=== PATIENT | female | born 2000 | race Two or more races ===

== ENCOUNTER 2020-05-10 01:20 | Emergency (ER) | payer OTHER ==
[~2020-05-10] VITALS: Ht 154.9 cm; Wt 57.6 kg
[2020-05-10] MEDS ORDERED: PRENA1 CHEW TA1.4 MG (01:31)
[2020-05-10] MEDS ORDERED: ANALPRAM HC 2.530 GM RECTAL (02:54)
== END 2020-05-10 03:22 | disposition home or self-care (01) ==
LOC: ER 01:20
DX: K64.8 Other hemorrhoids (principal)

== ENCOUNTER 2020-05-18 19:22 | Outpatient (CLI) | payer OTHER ==
[~2020-05-18 19:22] MED LIST: ANALPRAM HC 2.530 GM RECTAL; PRENA1 CHEW TA1.4 MG
== END 2020-05-19 10:34 | disposition home or self-care (01) ==
LOC: OBS/DEL 19:22
PROVIDERS: ATTEND Obstetrics & Gynecology
DX: O26.892 Other specified pregnancy related conditions, second trimester (principal); R10.12 Left upper quadrant pain

== ENCOUNTER → 2020-07-20 | Outpatient (CLI) | payer OTHER | END | disposition home or self-care (01) | LOC: NST 18:08 | PROVIDERS: ATTEND Obstetrics & Gynecology | DX: Z34.83 Encounter for supervision of other normal pregnancy, third trimester (principal) ==

== ENCOUNTER 2020-07-24 12:00 | Outpatient (CLI) | payer OTHER | END 2020-07-24 13:27 | disposition home or self-care (01) | LOC: NST 12:00 | PROVIDERS: ATTEND Obstetrics & Gynecology | DX: Z34.83 Encounter for supervision of other normal pregnancy, third trimester (principal) ==

== ENCOUNTER 2020-07-29 20:37 | Outpatient (CLI) | payer OTHER | END 2020-07-30 15:28 | disposition home or self-care (01) | LOC: OBS/DEL 20:37 | PROVIDERS: ATTEND Obstetrics & Gynecology | DX: O36.8130 Decreased fetal movements, third trimester, not applicable or unspecified (principal); Z3A.35 35 weeks gestation of pregnancy ==

== ENCOUNTER 2020-08-11 15:48 | Inpatient (IN) | payer OTHER ==
[~2020-08-11] VITALS: Ht 154.9 cm; Wt 1.8 kg
== END 2020-08-14 14:48 | disposition home or self-care (01) | DRG 788 ==
LOC: LDR 15:48 → OB/GYN 15:48 → O/R 20:55 → OB/GYN 21:39
PROVIDERS: ADMIT Obstetrics & Gynecology; ATTEND Obstetrics & Gynecology
PROC: 4A1HXFZ Monitoring of Products of Conception, Cardiac Rhythm, External Approach (ICD-10-PCS; 2020-08-11)
PROC: 10D00Z1 Extraction of Products of Conception, Low, Open Approach (ICD-10-PCS; principal; 2020-08-11 18:00)
DX: O36.8330 Maternal care for abnormalities of the fetal heart rate or rhythm, third trimester, not applicable or unspecified (principal); O36.5930 Maternal care for other known or suspected poor fetal growth, third trimester, not applicable or unspecified; Z3A.36 36 weeks gestation of pregnancy; Z37.0 Single live birth; Z20.822 Contact with and (suspected) exposure to COVID-19

== ENCOUNTER 2023-06-01 17:57 | Emergency (ER) | payer OTHER ==
[~2023-06-01] VITALS: Ht 154.9 cm; Wt 68.0 kg
== END 2023-06-01 21:03 | disposition home or self-care (01) ==
LOC: ER 17:57
DX: O26.893 Other specified pregnancy related conditions, third trimester (principal); Z3A.29 29 weeks gestation of pregnancy; R42 Dizziness and giddiness

== ENCOUNTER 2023-06-24 03:18 | Outpatient (CLI) | payer OTHER | END 2023-06-24 10:00 | disposition home or self-care (01) | LOC: OBS/DEL 03:18 | PROVIDERS: ATTEND Obstetrics & Gynecology | DX: O36.8130 Decreased fetal movements, third trimester, not applicable or unspecified (principal); Z3A.32 32 weeks gestation of pregnancy ==